=== PATIENT | male | born 1945 | race Caucasian/White ===

== ENCOUNTER 2016-08-05 11:03 | Emergency (ER) | payer MEDICARE ==
[~2016-08-05] VITALS: Ht 170.2 cm; Wt 70.8 kg
[2016-08-05 11:07] VITALS: BP 122/74
[2016-08-05] MEDS ORDERED: METHOCARBAMOL 750 MG TABLET PO ONE (12:00)
[2016-08-05] MEDS ORDERED: OXYcodone/APAP 5/325MG TABLET PO ONE (12:00)
[2016-08-05] MEDS ORDERED: KETOROLAC 30 MG/1 ML IM ONE (12:00)
[2016-08-05] MEDS ORDERED: OXYcodone/APAP 5/325MG TABLET ONE (12:13)
[2016-08-05] MEDS ORDERED: KETOROLAC 30 MG/1 ML ONE (12:14)
[2016-08-05] MEDS ORDERED: METHOCARBAMOL 750 MG TABLET ONE (12:14)
== END 2016-08-05 12:44 | disposition home or self-care (01) ==
LOC: ED 12:16
DX: M54.5 Low back pain (principal); M54.6 Pain in thoracic spine; G89.29 Other chronic pain
CPT/HCPCS: 72072; 72110; 96372; 99284; J1885